=== PATIENT | male | born 1950 ===

== ENCOUNTER 2019-02-03 16:12 | Outpatient (CLI) | payer OTHER | END 2019-02-03 16:13 | disposition home or self-care (01) | LOC: C.RADIC 16:12 ==

== ENCOUNTER 2019-02-05 10:32 | Inpatient (IN) | payer OTHER ==
[2019-02-05 10:32] VITALS: BMI 31.5
[2019-02-05 10:47] VITALS: RESP 20
--- NOTE | 2019-02-05 11:55 | C.PDOC ---
History Of Present Illness 68 y/o male comes to hospital to go to or with Dr Zimmer for an umbilical hernia. pt has no complaints. Time Seen by Provider: 02/05/19 11:00 Chief Complaint (Nursing): Medical Clearance History Per: Patient History/Exam Limitations: no limitations Past Medical History Reviewed: Historical Data, Nursing Documentation, Vital Signs Vital Signs: Last Vital Signs Temp 98.2 F 02/05/19 10:46 Pulse 50 L 02/05/19 10:46 Resp 20 02/05/19 10:46 BP 116/69 02/05/19 10:46 Pulse Ox 96 02/05/19 10:46 Primary Care Provider: Ricco Armstrong - Medical History PMH: No Chronic Diseases - [facility] Procedures INJECT/INFUSE NEC (02/14/14) Family History: States: Unknown Family Hx - Social History Hx Tobacco Use: No Hx Alcohol Use: No Hx Substance Use: No - Immunization History Hx Tetanus Toxoid Vaccination: No Hx Influenza Vaccination: No Hx Pneumococcal Vaccination: No Review Of Systems Constitutional: Negative for: Fever, Chills Respiratory: Negative for: Cough Gastrointestinal: Negative for: Nausea, Vomiting, Abdominal Pain Genitourinary: Negative for: Dysuria Skin: Negative for: Rash Physical Exam - Physical Exam Appears: Non-toxic, No Acute Distress Skin: Warm, Dry Head: Atraumatic, Normacephalic Neck: Supple Chest: No Tenderness Cardiovascular: Rhythm Regular, No Murmur Respiratory: No Decreased Breath Sounds, No Rales, No Rhonchi, No Wheezing Gastrointestinal/Abdominal: Bowel Sounds, Soft, No Tenderness, No Distention, No Guarding, Hernia (umbilical, reducible) Neurological/Psych: Oriented x3, Normal Speech, Normal Cognition ED Course And Treatment - Laboratory Results Result Diagrams: 02/06/19 06:25 02/06/19 06:25 ECG: Interpreted By Me, Viewed By Me ECG Rhythm: Sinus Rhythm Interpretation Of ECG: Sinus Bradycardia with voltage criteria hypertrophy Rate From EC O2 Sat by Pulse Oximetry: 96 (RA) Pulse Ox Interpretation: Normal Medical Decision Making Medical Decision Making: pt sent for admission for hernia Disposition Discussed With : Kael Zimmer Doctor Will See Patient In The: Hospital - Disposition Disposition: HOSPITALIZED Disposition Time: 12:26 Condition: GOOD - Clinical Impression Clinical Impression: Umbilical hernia
[2019-02-05 12:46] LABS: BASO % 0.9 % (0.0-2.0); EOS # 0.1 K/uL (0.0-0.7); EOS % 2.7 % (0.0-4.0); HEMOGLOBIN 14.4 g/dL (12.0-18.0); LYMPH # 1.4 K/uL (1.0-4.3); LYMPH % 27.8 % (20.0-40.0); MEAN CELL VOLUME 91.2 fL (80.0-94.0); MEAN CORPUSCULAR HEMOGLOBIN 31.7 pg (27.0-31.0); MEAN CORPUSCULAR HGB CONC 34.7 g/dL (33.0-37.0); MEAN PLATELET VOLUME 9.1 fL (7.2-11.7); MONO # 0.5 K/uL (0.0-0.8); MONO % 9.9 % (0.0-10.0); NEUT % 58.7 % (50.0-75.0); RBC 4.54 Mil/uL (4.40-5.90); RED CELL DISTRIBUTION WIDTH 12.9 % (11.5-14.5); WHITE BLOOD COUNT 5.2 K/uL (4.8-10.8)
[2019-02-05 12:53] LABS: INR 1.1; PROTHROMBIN TIME 11.5 SECONDS (9.7-12.2)
[2019-02-05 12:57] LABS: ALB/GLOB RATIO 1.3 (1.0-2.1); ALBUMIN 4.3 g/dL (3.5-5.0); ALT/SGPT 62 U/L (21-72); AST/SGOT 38 U/L (17-59); BLOOD UREA NITROGEN 17 mg/dL (9-20); CALCIUM 9.4 mg/dl (8.6-10.4); GFR NON-AFRICAN AMERICAN > 60; LIPASE 88 U/L (23-300)
[2019-02-05] MEDS ORDERED: Bupivacaine 0.25% 20 ML INJ IJ ONE (13:38)
[2019-02-05] MEDS ORDERED: ceFAZolin 1 gm in NS 1 GM/100 ML BAG IVPB ONE (13:38)
[2019-02-05] MEDS ORDERED: Lidocaine Hydrochloride 0 ML INJ ONE (13:39)
[2019-02-05] MEDS ORDERED: Propofol 10 mg/ml Inj (20 ML) ONE (13:41)
[2019-02-05] MEDS ORDERED: Midazolam 2 MG/2 ML VIAL ONE (13:41)
[2019-02-05] MEDS ORDERED: Bacitracin 500 Units/gm Oint Foilpak UD ONE (14:10)
[2019-02-05] MEDS ORDERED: Neostigmine 1:1000 (1 mg/ml) Inj ONE (14:13)
[2019-02-05] MEDS ORDERED: HYDROmorphone 0.5 mg/0.5 ml ISec IVP PRN (14:29)
[2019-02-05] MEDS ORDERED: Oxycodone/Acetaminophen 5/325 mg Tab PO PRN (14:31)
--- NOTE | 2019-02-05 14:32 | RAD ---
HISTORY: abd pain COMPARISON: None available. TECHNIQUE: Chest PA and lateral, 2 views FINDINGS: LUNGS: No focal consolidation. Please note that chest x-ray has limited sensitivity for the detection of pulmonary masses. PLEURA: No significant pleural effusion identified. No definite pneumothorax . CARDIOVASCULAR: The cardiomediastinal silhouette appears within normal limits of size. No atherosclerotic calcification present. OSSEOUS STRUCTURES: Degenerative changes including confluent anterior osteophyte formation. VISUALIZED UPPER ABDOMEN: Unremarkable. OTHER FINDINGS: None. IMPRESSION: No focal consolidation.
--- NOTE | 2019-02-05 15:38 | CP.PCM.CON ---
<Rosalinda Price - Last Filed: 02/05/19 16:38> History of Present Illness - History of Present Illness History of Present Illness: PGY3 medicine consult note 68 year old male with no significant past medical history was sent to hospital by Dr. Zimmer for incarcerated umbilical hernia. Patient was taken to OR today for umbilical hernia surgery. Medicine is consulted for possible new onset diabetes with elevated blood sugar. Pre-op blood sugar was 301. Patient does admit to having increased urination and increased thirst for past few weeks. Currently denies having any chest pain, shortness of breath, abdominal pain, nausea, vomiting, fevers, chills, pain at surgical site. Pmhx:denies Sx: umbilical hernia repair 02/05/19; B/L venous stasis ulcer surgery, left knee arthroscopy Social:denies tobacco, etoh or drug use. 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 Armstrong Allergies: oxycodone (flushing) Review of Systems - Constitutional Constitutional: absent: Chills, Fever - EENT Eyes: absent: Blurred Vision, Change in Vision Nose/Mouth/Throat: absent: Nasal Congestion, Nasal Discharge - Cardiovascular Cardiovascular: absent: Chest Pain, Dyspnea, Edema, Leg Edema - Respiratory Respiratory: absent: Cough, Dyspnea, Dyspnea on Exertion, Wheezing, Chest Congestion - Gastrointestinal Gastrointestinal: absent: Abdominal Pain, Constipation, Diarrhea, Dysphagia, Nausea, Vomiting - Genitourinary Genitourinary: absent: Dysuria, Urinary Frequency - Musculoskeletal Musculoskeletal: absent: Back Pain, Numbness, Tingling - Integumentary Integumentary: absent: Acne, Lesions, Rash - Neurological Neurological: absent: Numbness, Tingling, Weakness - Psychiatric Psychiatric: absent: Anxiety, Depression Past Patient History - Past Social History Smoking Status: Never Smoked Chewing Tobacco Use: No Cigar Use: No Alcohol: None Drugs: Denies - PSYCHIATRIC Hx Substance Use: No - SURGICAL HISTORY Hx Surgeries: Yes Other/Comment: Lt. foot surgery, Rt. foot surgery, Lt. knee surgery, - ANESTHESIA Hx Anesthesia: No Hx Anesthesia Reactions: No Meds Allergies/Adverse Reactions: Allergies Allergy/AdvReac Type Severity Reaction Status Date / Time acetaminophen [From Percocet] Allergy SHORTNESS Verified 02/05/19 10:48 OF BREATH oxycodone [From Percocet] Allergy SHORTNESS Verified 02/05/19 10:48 OF BREATH - Medications Medications: Current Medications Docusate Sodium (Colace) 100 mg PO BID [facility] Hydromorphone HCl (Dilaudid) 0.5 mg IVP Q15M PRN PRN Reason: Pain, moderate (4-7) Stop: 02/05/19 16:29 Metoclopramide HCl (Reglan) 10 mg IVP ONCE PRN PRN Reason: Nausea/Vomiting Stop: 02/05/19 16:29 Ondansetron HCl (Zofran Inj) 4 mg IVP ONCE PRN PRN Reason: Nausea/Vomiting Stop: 02/05/19 16:29 Oxycodone/Acetaminophen (Percocet 5/325 Mg Tab) 2 tab PO Q4H PRN PRN Reason: pain Stop: 02/08/19 14:32 Pantoprazole Sodium (Protonix Inj) 40 mg IVP DAILY [facility] Physical Exam - Constitutional Appears: Non-toxic, No Acute Distress - Head Exam Head Exam: ATRAUMATIC, NORMOCEPHALIC - Eye Exam Eye Exam: EOMI, Normal appearance Pupil Exam: NORMAL ACCOMODATION - ENT Exam ENT Exam: Mucous Membranes Moist - Respiratory Exam Respiratory Exam: Clear to Auscultation Bilateral. absent: Accessory Muscle Use, Rhonchi, Wheezes, Respiratory Distress - Cardiovascular Exam Cardiovascular Exam: REGULAR RHYTHM, +S1, +S2. absent: Diastolic murmur, Gallop, Rubs, Systolic Murmur - GI/Abdominal Exam GI & Abdominal Exam: Normal Bowel Sounds, Soft. absent: Distended, Firm, Guarding, Rigid, Tenderness - Extremities Exam Extremities exam: Negative for: pedal edema, tenderness - Neurological Exam Neurological exam: Alert, Oriented x3 - Psychiatric Exam Psychiatric exam: Normal Affect, Normal Mood - Skin Skin Exam: Dry, Intact, Normal Color, Warm Results - Vital Signs Recent Vital Signs: Last Vital Signs Temp 98.5 F 02/05/19 13:21 Pulse 45 L 02/05/19 13:21 Resp 20 02/05/19 13:21 BP 148/74 02/05/19 13:21 Pulse Ox 97 02/05/19 13:21 - Labs Result Diagrams: 02/05/19 12:41 02/05/19 12:41 Labs: Laboratory Results - last 24 hr 0502/05/19 02/05/19 12:41 12:41 12:41 WBC 5.2 RBC 4.54 Hgb 14.4 Hct 41.4 MCV 91.2 MCH 31.7 H MCHC 34.7 RDW 12.9 Plt Count 256 MPV 9.1 Neut % (Auto) 58.7 Lymph % (Auto) 27.8 [place] % (Auto) 9.9 Eos % (Auto) 2.7 Baso % (Auto) 0.9 Neut # (Auto) 3.0 Lymph # (Auto) 1.4 [place] # (Auto) 0.5 Eos # (Auto) 0.1 Baso # (Auto) 0.0 PT 11.5 INR 1.1 APTT 31.0 Sodium 140 Potassium 4.0 Chloride 99 Carbon Dioxide 30 Anion Gap 15 BUN 17 Creatinine 0.8 Est GFR ( Amer) > 60 Est GFR (Non-Af Amer) > 60 POC Glucose (mg/dL) Random Glucose 301 H Calcium 9.4 Total Bilirubin 0.6 AST 38 ALT 62 Alkaline Phosphatase 58 Total Protein 7.6 Albumin 4.3 Globulin 3.4 Albumin/Globulin Ratio 1.3 Lipase 88 02/05/19 02/05/19 13:35 14:45 WBC RBC Hgb Hct MCV MCH MCHC RDW Plt Count MPV Neut % (Auto) Lymph % (Auto) [place] % (Auto) Eos % (Auto) Baso % (Auto) Neut # (Auto) Lymph # (Auto) [place] # (Auto) Eos # (Auto) Baso # (Auto) PT INR APTT Sodium Potassium Chloride Carbon Dioxide Anion Gap BUN Creatinine Est GFR ( Amer) Est GFR (Non-Af Amer) POC Glucose (mg/dL) 258 H 247 H Random Glucose Calcium Total Bilirubin AST ALT Alkaline Phosphatase Total Protein Albumin Globulin Albumin/Globulin Ratio Lipase Assessment & Plan - Assessment and Plan (Free Text) Assessment: 68 year old male with no significant past medical history is admitted for umbilical hernia repair. On blood work done prior to surgery, patient is noted to have elevated blood sugar of 301. Elevated blood sugar - will repeat CMP in am - will check hgbA1c and lipid panel - pt started on metformin 500 mg po daily and lisinopril 2.5 mg po qd and ISS - Accuchecks achs - hypoglycemia protocol - will check UA Umbilical hernia repair - pain management per primary care team Prophylaxis - Pepcid - Lovenox, SCDs case will be discussed with attending, Dr. Mccray - Date & Time Date: 02/05/19 Time: 15:39 <Riki Mccray - Last Filed: 02/05/19 17:50> Meds - Medications Medications: Current Medications Dextrose (Dextrose 50% Inj) 0 ml IV STAT PRN; Protocol PRN Reason: Hypoglycemia Protocol Dextrose (Glutose 15) 0 gm PO ONCE PRN; Protocol PRN Reason: Hypoglycemia Protocol Docusate Sodium (Colace) 100 mg PO BID [facility] Last Admin: 02/05/19 17:15 Dose: 100 mg Enoxaparin Sodium (Lovenox) 40 mg SC DAILY [facility] Glucagon (Glucagen Diagnostic Kit) 0 mg IM STAT PRN; Protocol PRN Reason: Hypoglycemia Protocol Dextrose (Dextrose 5% In Water 1000 Ml) 1,000 mls @ 0 mls/hr IV .Q0M PRN; Protocol PRN Reason: Hypoglycemia Protocol Insulin Human Regular (Novolin R) 0 unit SC ACHS [facility]; Protocol Lisinopril (Zestril) 2.5 mg PO DAILY [facility] Last Admin: 02/05/19 17:15 Dose: 2.5 mg Metformin HCl (Glucophage) 500 mg PO DAILY [facility] Last Admin: 02/05/19 17:15 Dose: 500 mg Morphine Sulfate (Morphine) 1 mg IVP Q4 PRN PRN Reason: Pain, moderate (4-7) Pantoprazole Sodium (Protonix Inj) 40 mg IVP DAILY [facility] Results - Vital Signs Recent Vital Signs: Last Vital Signs Temp 97.5 F L 02/05/19 15:52 Pulse 48 L 02/05/19 15:52 Resp 20 02/05/19 15:52 BP 139/69 02/05/19 17:16 Pulse Ox 95 02/05/19 15:52 - Labs Result Diagrams: 02/05/19 12:41 02/05/19 12:41 Labs: Laboratory Results - last 24 hr 02/05/19 02/05/19 02/05/19 12:41 12:41 12:41 WBC 5.2 RBC 4.54 Hgb 14.4 Hct 41.4 MCV 91.2 MCH 31.7 H MCHC 34.7 RDW 12.9 Plt Count 256 MPV 9.1 Neut % (Auto) 58.7 Lymph % (Auto) 27.8 [place] % (Auto) 9.9 Eos % (Auto) 2.7 Baso % (Auto) 0.9 Neut # (Auto) 3.0 Lymph # (Auto) 1.4 [place] # (Auto) 0.5 Eos # (Auto) 0.1 Baso # (Auto) 0.0 PT 11.5 INR 1.1 APTT 31.0 Sodium 140 Potassium 4.0 Chloride 99 Carbon Dioxide 30 Anion Gap 15 BUN 17 Creatinine 0.8 Est GFR ( Amer) > 60 Est GFR (Non-Af Amer) > 60 POC Glucose (mg/dL) Random Glucose 301 H Hemoglobin A1c Calcium 9.4 Total Bilirubin 0.6 AST 38 ALT 62 Alkaline Phosphatase 58 Total Protein 7.6 Albumin 4.3 Globulin 3.4 Albumin/Globulin Ratio 1.3 Triglycerides Cholesterol LDL Cholesterol Direct HDL Cholesterol Lipase 88 Urine Color Urine Clarity Urine pH Ur Specific [place] Urine Protein Urine Glucose (UA) Urine Ketones Urine Blood Urine Nitrate Urine Bilirubin Urine Urobilinogen Ur Leukocyte Esterase Urine WBC (Auto) Urine RBC (Auto) Ur Squamous Epith Cells Urine Sperm (Auto) 02/05/19 02/05/19 02/05/19 12:41 12:41 13:35 WBC RBC Hgb Hct MCV MCH MCHC RDW Plt Count MPV Neut % (Auto) Lymph % (Auto) [place] % (Auto) Eos % (Auto) Baso % (Auto) Neut # (Auto) Lymph # (Auto) [place] # (Auto) Eos # (Auto) Baso # (Auto) PT INR APTT Sodium Potassium Chloride Carbon Dioxide Anion Gap BUN Creatinine Est GFR ( Amer) Est GFR (Non-Af Amer) POC Glucose (mg/dL) 258 H Random Glucose Hemoglobin A1c 15.4 H Calcium Total Bilirubin AST ALT Alkaline Phosphatase Total Protein Albumin Globulin Albumin/Globulin Ratio Triglycerides 106 Cholesterol 161 LDL Cholesterol Direct 118 HDL Cholesterol 43 Lipase Urine Color Urine Clarity Urine pH Ur Specific [place] Urine Protein Urine Glucose (UA) Urine Ketones Urine Blood Urine Nitrate Urine Bilirubin Urine Urobilinogen Ur Leukocyte Esterase Urine WBC (Auto) Urine RBC (Auto) Ur Squamous Epith Cells Urine Sperm (Auto) 02/05/19 02/05/19 02/05/19 14:45 16:05 17:12 WBC RBC Hgb Hct MCV MCH MCHC RDW Plt Count MPV Neut % (Auto) Lymph % (Auto) [place] % (Auto) Eos % (Auto) Baso % (Auto) Neut # (Auto) Lymph # (Auto) [place] # (Auto) Eos # (Auto) Baso # (Auto) PT INR APTT Sodium Potassium Chloride Carbon Dioxide Anion Gap BUN Creatinine Est GFR ( Amer) Est GFR (Non-Af Amer) POC Glucose (mg/dL) 247 H 236 H Random Glucose Hemoglobin A1c Calcium Total Bilirubin AST ALT Alkaline Phosphatase Total Protein Albumin Globulin Albumin/Globulin Ratio Triglycerides Cholesterol LDL Cholesterol Direct HDL Cholesterol Lipase Urine Color Yellow Urine Clarity Clear Urine pH 6.0 Ur Specific [place] 1.027 Urine Protein Negative Urine Glucose (UA) 3+ H Urine Ketones Negative Urine Blood Negative Urine Nitrate Negative Urine Bilirubin Negative Urine Urobilinogen Normal Ur Leukocyte Esterase Neg Urine WBC (Auto) 5 Urine RBC (Auto) 4 H Ur Squamous Epith Cells < 1 Urine Sperm (Auto) Rare H Attending/Attestation - Attestation I have personally seen and examined this patient.: Yes I have fully participated in the care of the patient.: Yes I have reviewed all pertinent clinical information: Yes Notes (Text): 02/05/19 17:40 Medical Consult: reviewed the above note by the resident. The patient was not in any acute distress when we came and saw him. His family was at bedside and he was status post surgery. He explained the pain was well controlled when we saw him. The patient had elevated blood sugars recorded and so medicine was consulted on the case. He claims he did not know he had diabetes. We will run a Hgb A1C as well as a UA and for the time being start on metformin and a low dose EUNICE-I for the time bieng. We explained to him in the future he should consider eye examination as well as changes / lifestye modifications Riki Mccray
[2019-02-05] MEDS ORDERED: Dextrose 50% SYRINGE Inj (50 ml) IV PRN (16:35)
[2019-02-05] MEDS ORDERED: Glucagon Recombinant 1 mg Inj IM PRN (16:35)
[2019-02-05 17:08] LABS: HDL CHOLESTEROL 43 mg/dL (30-70)
[2019-02-05 17:19] LABS: LDL CHOLESTEROL 118 mg/dL (0-129)
[2019-02-05 17:37] LABS: SPERM URINE RARE /hpf; SQUAMOUS EPITHIAL < 1 /hpf (0-5); URINE BILIRUBIN NEGATIVE (NEGATIVE); URINE BLOOD NEGATIVE (NEGATIVE); URINE CLARITY Clear (Clear); URINE COLOR Yellow (YELLOW); URINE GLUCOSE (UA) 3+ mg/dL (Normal); URINE LEUKOCYTE ESTERASE NEG Leu/uL (Negative); URINE PROTEIN NEGATIVE (NEGATIVE); URINE UROBILINOGEN NORMAL mg/dL (0.2-1.0)
[2019-02-05] MEDS: (Novolin R) Insulin Human Regular 100 units/ml vial SC SCH (21:43)
--- NOTE | 2019-02-06 06:06 | OP ---
PROCEDURE DATE: 02/05/2019 PREOPERATIVE DIAGNOSIS: Incarcerated umbilical and ventral hernia. POSTOPERATIVE DIAGNOSIS: Incarcerated umbilical and ventral hernia. PROCEDURE PERFORMED: Repair of incarcerated umbilical and ventral hernia with extensive lysis of adhesions. SURGEON: Kael Zimmer MD ANESTHESIA: General. BLOOD LOSS: 20 mL. POSTOPERATIVE CONDITION: Stable. INDICATIONS FOR SURGERY: This is a 68-year-old male with a history of abdominal pain from an incarcerated hernia, who presents to the emergency room for urgent repair. DESCRIPTION OF PROCEDURE: The patient was taken to the operating room. General anesthesia was administered. The abdomen was prepped and draped. A transverse incision was made over the supraumbilical hernia site and the hernia sac was encountered, dissected down to the fascia and transected. There was a fair amount of adhesions of both small bowel and transverse colon, which were taken down sharply. Omentum was also taken down. A partial omentectomy was performed and small serosal tears of the small bowel and transverse colon were repaired with silk. After it had been freed up of adhesions, a primary repair with interrupted 0 Prolene was accomplished. Wound was irrigated with saline. Tissue flap closure was performed. The patient tolerated the procedure well, returned to recovery room in stable condition. Kael Zimmer MD
[2019-02-06 06:35] LABS: BASO % 0.6 % (0.0-2.0); EOS # 0.1 K/uL (0.0-0.7); EOS % 2.2 % (0.0-4.0); HEMOGLOBIN 13.5 g/dL (12.0-18.0); LYMPH # 1.4 K/uL (1.0-4.3); LYMPH % 23.3 % (20.0-40.0); MEAN CELL VOLUME 91.3 fL (80.0-94.0); MEAN CORPUSCULAR HEMOGLOBIN 30.6 pg (27.0-31.0); MEAN CORPUSCULAR HGB CONC 33.5 g/dL (33.0-37.0); MEAN PLATELET VOLUME 8.4 fL (7.2-11.7); MONO # 0.5 K/uL (0.0-0.8); MONO % 8.8 % (0.0-10.0); NEUT # 3.8 K/uL (1.8-7.0); NEUT % 65.1 % (50.0-75.0); RBC 4.42 Mil/uL (4.40-5.90); WHITE BLOOD COUNT 5.9 K/uL (4.8-10.8)
[2019-02-06 06:52] LABS: BLOOD UREA NITROGEN 18 mg/dL (9-20); CALCIUM 8.6 mg/dl (8.6-10.4); GFR NON-AFRICAN AMERICAN > 60
[2019-02-06] MEDS: (Novolin R) Insulin Human Regular 100 units/ml vial SC SCH ×4 (09:00→21:23)
--- NOTE | 2019-02-06 09:33 | CP.PCM.PN ---
<Vaibhav Atkinson - Last Filed: 02/06/19 15:47> Subjective - Date & Time of Evaluation Date of Evaluation: 02/06/19 Time of Evaluation: 09:33 - Subjective Subjective: PGY-1 Medicine Progress Note for Dr. Mccray Patient seen and examined at bedside this AM, in no acute distress. No overnight events reported. Patient made aware of very high A1C level, need for diabetes medications upon discharge. He was amenable to plans. He did endorse increased urination and increased thirst for past few weeks. 12 pt ROS reviewed and otherwise negative. Objective - Vital Signs/Intake and Output Vital Signs (last 24 hours): Temp Pulse Resp BP Pulse Ox 98.4 F 51 L 20 114/60 95 02/06/19 07:00 02/06/19 07:00 02/06/19 07:00 02/06/19 07:00 02/06/19 07:00 Intake and Output: 02/06/19 02/06/19 06:59 18:59 Intake Total 400 Balance 400 - Medications Medications: Current Medications Dextrose (Dextrose 50% Inj) 0 ml IV STAT PRN; Protocol PRN Reason: Hypoglycemia Protocol Dextrose (Glutose 15) 0 gm PO ONCE PRN; Protocol PRN Reason: Hypoglycemia Protocol Docusate Sodium (Colace) 100 mg PO BID [facility] Last Admin: 02/05/19 17:15 Dose: 100 mg Enoxaparin Sodium (Lovenox) 40 mg SC DAILY [facility] Glucagon (Glucagen Diagnostic Kit) 0 mg IM STAT PRN; Protocol PRN Reason: Hypoglycemia Protocol Dextrose (Dextrose 5% In Water 1000 Ml) 1,000 mls @ 0 mls/hr IV .Q0M PRN; Pr otocol PRN Reason: Hypoglycemia Protocol Insulin Human Regular (Novolin R) 0 unit SC ACHS [facility]; Protocol Lisinopril (Zestril) 2.5 mg PO DAILY [facility] Last Admin: 02/05/19 17:15 Dose: 2.5 mg Metformin HCl (Glucophage) 500 mg PO DAILY [facility] Last Admin: 02/05/19 17:15 Dose: 500 mg Pantoprazole Sodium (Protonix Inj) 40 mg IVP DAILY [facility] - Labs Labs: 02/06/19 06:25 02/06/19 06:25 PT 11.5 SECONDS (9.7-12.2) 02/05/19 12:41 INR 1.1 02/05/19 12:41 APTT 31.0 SECONDS (21-34) 02/05/19 12:41 - Constitutional Appears: Non-toxic, No Acute Distress - Head Exam Head Exam: ATRAUMATIC, NORMAL INSPECTION, NORMOCEPHALIC - Eye Exam Eye Exam: EOMI, Normal appearance, PERRL Pupil Exam: NORMAL ACCOMODATION - ENT Exam ENT Exam: Mucous Membranes Moist, Normal Exam - Neck Exam Neck Exam: Full ROM, Normal Inspection - Respiratory Exam Respiratory Exam: Clear to Ausculation Bilateral, NORMAL BREATHING PATTERN. ab sent: Accessory Muscle Use, Rales, Rhonchi, Wheezes, Respiratory Distress, Stridor - Cardiovascular Exam Cardiovascular Exam: REGULAR RHYTHM, +S1, +S2 - GI/Abdominal Exam GI & Abdominal Exam: Soft, Normal Bowel Sounds. absent: Distended, Firm, Guarding, Rigid, Tenderness, Rebound - Extremities Exam Extremities Exam: Full ROM, Normal Capillary Refill, Normal Inspection - Back Exam Back Exam: NORMAL INSPECTION - Neurological Exam Neurological Exam: Alert, Awake, Oriented x3 - Skin Skin Exam: Dry, Intact, Normal Color, Warm Assessment and Plan - Assessment and Plan (Free Text) Assessment: 68 year old male with no significant past medical history is admitted for umbilical hernia repair. Medicine consulter for pre-op hyperglycemia. A1C noted to be 15.4, started on oral DM agents and ISS. Plan: DM -A1C: 15.4 -metformin 500 mg PO BID -ISS -accuchecks achs -hypoglycemic protocol HTN -currently normotensive, continue to monitor -lisinopril 2.5 mg PO daily Umbilical hernia repair -pain mgmt as per primary care team PPx, Diet, Disposition -DVT ppx; scds, lovenox -GI ppx: pepcid -Diet: HHD -Dispo: C/W metformin and lisinopril. Patient will need to follow up with primary care provider for monitoring of BG levels and adjustment of oral agents as needed. We will sign off at this time. Thank you for this interesting case! Case discussed with Dr. Shazia Atkinson DO, PGY-1 <Riki Mccray - Last Filed: 02/06/19 16:08> Objective - Vital Signs/Intake and Output Vital Signs (last 24 hours): Temp Pulse Resp BP Pulse Ox 98.4 F 51 L 20 114/60 96 02/06/19 07:00 02/06/19 07:00 02/06/19 07:00 02/06/19 07:00 02/06/19 11:36 Intake and Output: 02/06/19 02/06/19 06:59 18:59 Intake Total 400 Balance 400 - Medications Medications: Current Medications Dextrose (Dextrose 50% Inj) 0 ml IV STAT PRN; Protocol PRN Reason: Hypoglycemia Protocol Dextrose (Glutose 15) 0 gm PO ONCE PRN; Protocol PRN Reason: Hypoglycemia Protocol Docusate Sodium (Colace) 100 mg PO BID [facility] Last Admin: 02/06/19 10:31 Dose: 100 mg Enoxaparin Sodium (Lovenox) 40 mg SC DAILY [facility] Last Admin: 02/06/19 10:31 Dose: 40 mg Glucagon (Glucagen Diagnostic Kit) 0 mg IM STAT PRN; Protocol PRN Reason: Hypoglycemia Protocol Dextrose (Dextrose 5% In Water 1000 Ml) 1,000 mls @ 0 mls/hr IV .Q0M PRN; Protocol PRN Reason: Hypoglycemia Protocol Insulin Human Regular (Novolin R) 0 unit SC ACHS [facility]; Protocol Last Admin: 02/06/19 11:53 Dose: 4 units Lisinopril (Zestril) 2.5 mg PO DAILY [facility] Last Admin: 02/06/19 10:31 Dose: 2.5 mg [facility] Pantoprazole Sodium (Protonix Inj) 40 mg IVP DAILY [facility] Last Admin: 02/06/19 10:30 Dose: 40 mg - Labs Labs: 02/06/19 06:25 02/06/19 06:25 PT 11.5 SECONDS (9.7-12.2) 02/05/19 12:41 INR 1.1 02/05/19 12:41 APTT 31.0 SECONDS (21-34) 02/05/19 12:41 Attending/Attestation - Attestation I have personally seen and examined this patient.: Yes I have fully participated in the care of the patient.: Yes I have reviewed all pertinent clinical information, including history, physical exam and plan: Yes Notes (Text): 02/06/19 16:05 Medical Consult: The patient was seen and examined by me with the medical res ident. Reviewed the above note by the resident and agree with the above. The patient reported his pain was controlled and we had a discussion with reguards to blood sugar and HTN. His HgbA1C was very high - it was 15 and we explained to him that he has probably been living with diabetes for quite some time now. We encouraged the patient to follow up with his primary care physician when he leaves from here since in the future will probably need further adjuments to medications as well as monitoring. Life style modifications also discussed as well. He reports that he is not a smoker Riki Mccray
[2019-02-06] MEDS: Enoxaparin 40 mg Syringe SC SCH (10:31)
--- NOTE | 2019-02-06 11:13 | CARD ---
APPROVED REPORT Date of service: 02/05/2019 EKG Measurement Heart [id number] <Conclusion> Marked sinus bradycardia Voltage criteria for left ventricular hypertrophy Abnormal ECG
[2019-02-07 07:33] LABS: BASO % 0.5 % (0.0-2.0); EOS # 0.1 K/uL (0.0-0.7); EOS % 1.9 % (0.0-4.0); HEMOGLOBIN 13.6 g/dL (12.0-18.0); LYMPH # 1.3 K/uL (1.0-4.3); LYMPH % 23.7 % (20.0-40.0); MEAN CELL VOLUME 91.2 fL (80.0-94.0); MEAN CORPUSCULAR HEMOGLOBIN 31.8 pg (27.0-31.0); MEAN CORPUSCULAR HGB CONC 34.8 g/dL (33.0-37.0); MEAN PLATELET VOLUME 8.9 fL (7.2-11.7); MONO # 0.6 K/uL (0.0-0.8); MONO % 11.1 % (0.0-10.0); NEUT # 3.3 K/uL (1.8-7.0); NEUT % 62.8 % (50.0-75.0); NRBC % 0.1 % (0.0-2.0); RBC 4.29 Mil/uL (4.40-5.90); RED CELL DISTRIBUTION WIDTH 13.2 % (11.5-14.5); WHITE BLOOD COUNT 5.3 K/uL (4.8-10.8)
[2019-02-07 08:20] LABS: ALB/GLOB RATIO 1.3 (1.0-2.1); ALBUMIN 3.6 g/dL (3.5-5.0); ALT/SGPT 51 U/L (21-72); AST/SGOT 29 U/L (17-59); BLOOD UREA NITROGEN 22 mg/dL (9-20); CALCIUM 8.9 mg/dl (8.6-10.4); GFR NON-AFRICAN AMERICAN > 60
[2019-02-07] MEDS: (Novolin R) Insulin Human Regular 100 units/ml vial SC SCH ×2 (08:30→12:30)
[2019-02-07] MEDS: Enoxaparin 40 mg Syringe SC SCH (09:34)
[2019-02-07 15:52] VITALS: BP 116/69; PULSE 68; TEMP 97.7; O2SAT 96
== END 2019-02-07 17:00 | disposition home or self-care (01) | DRG 337 ==
LOC: C.ER 10:32 → C.9E 12:29 → C.5S 13:02 → OBSVTOIN 14:29
PROVIDERS: ADMIT Surgery; ATTEND Surgery
PROC: 0DNU0ZZ Release Omentum, Open Approach (ICD-10-PCS; 2019-02-05)
PROC: 0WQF0ZZ Repair Abdominal Wall, Open Approach (ICD-10-PCS; 2019-02-05)
PROC: 0WQF0ZZ Repair Abdominal Wall, Open Approach (ICD-10-PCS; principal; 2019-02-05 13:15)
DX: K42.0 Umbilical hernia with obstruction, without gangrene (principal); K43.6 Other and unspecified ventral hernia with obstruction, without gangrene; E11.65 Type 2 diabetes mellitus with hyperglycemia